=== PATIENT | male | born 2000 | race Two or more races ===

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

== ENCOUNTER 2018-10-13 08:22 | Emergency (ER) | payer BC | END 2018-10-13 09:10 | disposition home or self-care (01) | LOC: FTE 09:10 | DX: J00 Acute nasopharyngitis [common cold] (principal); H66.002 Acute suppurative otitis media without spontaneous rupture of ear drum, left ear | CPT/HCPCS: 99283 ==